=== PATIENT | male | born 1950 | race Caucasian/White ===

== ENCOUNTER 2020-01-23 22:18 | Inpatient (IN) | payer MEDICARE, MEDICAID ==
[~2020-01-23] VITALS: Ht 172.7 cm; Wt 59.0 kg
[~2020-01-23 22:18] MED LIST: DEXILANT30 MG PO; ELAVIL10 MG PO
[2020-01-23 22:39] VITALS: BP 125/50
[2020-01-23 22:51] LABS: BASO # 0.2 10*3/uL (0.0-0.1); BASO % 1.3 % (0.0-1.0); EOS # 0.1 10*3/uL (0.0-0.4); HEMATOCRIT 33.9 % (42.0-52.0); LYMPH # 2.7 10*3/uL (1.3-4.4); LYMPH % 23.2 % (27.0-41.0); MEAN CELL VOLUME 92.6 fl (80.0-94.0); MEAN CORPUSCULAR HGB 30.6 pg (27.0-31.0); MEAN PLATELET VOLUME 8.2 fl (9.6-12.3); MONO # 1.1 10*3/uL (0.1-1.0); MONO % 9.6 % (3.0-9.0); NEUT # 7.4 10*3/uL (2.3-7.9); PLATELET COUNT AUTOMATED 274 10*3/uL (130-400); RED BLOOD COUNT 3.66 10*6/uL (4.50-5.90); RED CELL DISTRI WIDTH 13.6 % (0-14.5); WHITE BLOOD COUNT 11.5 10*3/uL (4.8-10.8)
[2020-01-23 23:06] LABS: ALBUMIN 2.8 gm/dl (3.1-4.5); ALKALINE PHOSPHATASE 111 U/L (45-117); BUN 7 mg/dl (7-24); CHLORIDE 91 mmol/L (98-107); CREATININE 0.88 mg/dL (0.70-1.30); POTASSIUM 3.5 mmol/L (3.5-5.1); SGOT/AST 14 IU/L (3-35); SGPT/ALT 10 U/L (12-78); SODIUM 123 mmol/L (136-145); TOTAL PROTEIN 6.7 gm/dL (6.4-8.2)
[2020-01-23 23:07] LABS: ACT PARTIAL THROMBO TIME 25.6 SECONDS (20.0-32.1); INTERNATIONAL NORM RATIO 1.1 (2.0-3.5)
[2020-01-23 23:33] VITALS: BP 115/70
[2020-01-24] VITALS (22 sets, daily range): BP systolic 82–122; BP diastolic 36–61
--- NOTE | 2020-01-24 00:30 | NUR ---
PT ASKING IF HE CAN STEP OUTSIDE TO SMOKE . IT WAS EXPLAINED TO THE PATIENT HE CANNOT. INDU YO RN.
--- NOTE | 2020-01-24 00:40 | NUR ---
PT STATES HE DOES NOT A CATH. PROVIDER MADE AWARE. INDU YO RN.
--- NOTE | 2020-01-24 00:41 | NUR ---
SPOKE WITH THE PATIENTS ANS SHE IS AWARE THE PATIENT IS BEING ADMITTED, WILL CALL IN AM. INDU YO RN.
--- NOTE | 2020-01-24 00:45 | NUR ---
Time: 44 A 69 year old MALE admitted to 5E under services of ELIZABETH LIPSCOMB DO. Pt. arrived via bed from ER. Chief complaint: FALL AT HOME, PAIN IN LEFT HIP. DELMY GARCIA
--- NOTE | 2020-01-24 00:45 | NUR ---
A 69, admitted to 5E, under the services of ELIZABETH Lipscomb DO with a diagnosis of LEFT HIP FRACTURE. Chief complaint is LEFT HIP PAIN. Patient arrived via stretcher from ER. Monitor applied. Initial assessment completed. Vital signs taken and recorded. ELIZABETH LIPSCOBM DO notified of admission to the unit. Orders received. See assessment for past medical history, medications and allergies. Patient and/or family oriented to [facility]. visitation policy reviewed. Clothing/patienT valuable form completed. NED GOVEA RN
--- NOTE | 2020-01-24 00:45 | NUR ---
PER ER REPORT FROM INDU RN, DR. BAPTISTE WAS NOTIFIED BY DOCTOR IN ER.
--- NOTE | 2020-01-24 00:52 | NUR ---
PATIENT AT THIS TIME REFUSED PLACEMENT OF RANDOLPH CATHETER
--- NOTE | 2020-01-24 00:58 | NUR ---
NOTIFIED DR. PATTON OF PATIENT REFUSING RANDOLPH UP HERE ON THE FLOOR, NOTIFIED HIM IT WAS ORDERED IN ER AND THEY STATED THEY WOULD PLACE IT BEFORE THE PATIENT WAS BROUGHT UP TO THE FLOOR. BUT PATIENT IS REFUSING UP HERE. ALSO NOTIFIED HIM THAT PATIENT SMOKES 1PPD OF CIGARETTES. HE STATED IT WAS OK TO PUT IN A NICOTINE PATCH
--- NOTE | 2020-01-24 02:08 | NUR ---
PRN NORCO GIVEN PO AT THIS TIME WITH A SIP OF WATER FOR 10/10 PAIN IN PATIENT LEFT HIP DUE TO FRACTURE. A&O X3, CALL LIGHT WITHIN REACH, WILL CONTINUE TO MONITOR.
--- NOTE | 2020-01-24 02:08 | NUR ---
NICODERM PATCH PLACE ON PATIENT LEFT SCAPULA AT THIS TIME.
--- NOTE | 2020-01-24 03:00 | NUR ---
PATIENT STATED THAT PAIN WAS STILL AN 8/10 AFTER PRN PO NORCO WAS GIVEN. A&O X3, CALL LIGHT WITHIN REACH, WILL CONTINUE TO MONITOR.
[2020-01-24 03:41] LABS: BILIRUBIN NEGATIVE; BLOOD NEGATIVE (NEGATIVE); CLARITY CLEAR (CLEAR); COLOR YELLOW (YELLOW); GLUCOSE NEGATIVE; KETONE NEGATIVE; NITRITE NEGATIVE (NEGATIVE); PH 6.5 (4.5-8.0); SPECIFIC GRAVITY 1.005 (1.001-1.030); UROBILINOGEN 0.2 E.U./dl (0.0-1.0)
[2020-01-24 03:43] LABS: LEUKO ESTERASE NEGATIVE (NEGATIVE)
[2020-01-24 03:49] LABS: RBC 0-2 rbc/hpf (0-2); WBC 0-2 wbc/hpf (0-5)
[2020-01-24 03:50] LABS: URINE AMPHETAMINES < 1000 (1000ng/ml); URINE BARBITURATES < 200 (200ng/ml); URINE BENZODIAZEPINES < 200 (200ng/ml); URINE CANNABINOIDS (THC) > 50 (50ng/ml); URINE COCAINE < 300 (300ng/ml); URINE METHADONE < 300 (300ng/ml); URINE OPIATES > 300 (300ng/ml)
[2020-01-24 03:51] LABS: URINE PHENCYCLIDINE < 25 (25ng/ml)
--- NOTE | 2020-01-24 04:16 | NUR ---
PRN IV DILAUDID GIVEN AT THIS TIME FOR 10/10 PAIN IN PATIENT LEFT HIP DUE TO FRACTURE. A&O X3, CALL LIGHT WITHIN REACH, WILL CONTINUE TO MONITOR.
--- NOTE | 2020-01-24 05:10 | NUR ---
PER PATIENT PRN IV DILAUDID "DIDN'T WORK MAN, I NEED SOMETHING ELSE" ADVISED PATIENT THAT THIS RN WOULD CALL THE PHYSICIAN AND ASK IF THEY WOULD ORDER SOMETHING ELSE. DR. SERRANO NOTIFIED, NO NEW ORDERS GIVEN.
[2020-01-24 06:25] LABS: BUN 7 mg/dl (7-24); CHLORIDE 96 mmol/L (98-107); POTASSIUM 3.7 mmol/L (3.5-5.1); SODIUM 128 mmol/L (136-145)
[2020-01-24 06:30] LABS: CHOLESTEROL 131 mg/dL (<200); HDL CHOLESTEROL 61 mg/dl (40-60); LDL CHOLESTEROL 53 mg/dL (9-159); TRIGLYCERIDES 84 mg/dl (<150); VLDL CHOLESTEROL 17 mg/dL (6-40)
[2020-01-24 06:40] LABS: BASO # 0.1 10*3/uL (0.0-0.1); BASO % 0.7 % (0.0-1.0); EOS # 0.1 10*3/uL (0.0-0.4); EOS % 0.4 % (1.0-4.0); HEMATOCRIT 30.4 % (42.0-52.0); LYMPH # 2.3 10*3/uL (1.3-4.4); LYMPH % 16.4 % (27.0-41.0); MEAN CELL VOLUME 94.1 fl (80.0-94.0); MEAN CORPUSCULAR HGB 31.6 pg (27.0-31.0); MEAN CORPUSCULAR HGB CONC 33.6 g/dl (33.0-37.0); MEAN PLATELET VOLUME 8.4 fl (9.6-12.3); MONO # 1.1 10*3/uL (0.1-1.0); MONO % 7.7 % (3.0-9.0); NEUT # 10.3 10*3/uL (2.3-7.9); NEUT % 74.1 % (47.0-73.0); PLATELET COUNT AUTOMATED 287 10*3/uL (130-400); RED BLOOD COUNT 3.23 10*6/uL (4.50-5.90); RED CELL DISTRI WIDTH 13.7 % (0-14.5); WHITE BLOOD COUNT 13.9 10*3/uL (4.8-10.8)
[2020-01-24 08:05] LABS: VITAMIN D, 25-HYDROXY 15.6 ng/mL (30-100)
--- NOTE | 2020-01-24 08:12 | NUR ---
Occupational therapy order and nursing screen received. Will follow up with patient for completion of an OT evaluation. Thank you. Mahnaz Durant, OTR/L
--- NOTE | 2020-01-24 08:14 | NUR ---
NOTIFIED OF BP 88/54 AND REQUEST FOR PAIN MEDS. SAID OK TO GIVE DILAUDID AND WILL ORDER NS @60CC/HR.
--- NOTE | 2020-01-24 08:16 | NUR ---
PT REQUESTING SOMETHING FOR 9/10 L HIP PAIN. PRN DILUADID GIVEN PER ORDER, SEE EMAR.
--- NOTE | 2020-01-24 08:38 | NUR ---
DR. BAPTISTE IN TO SEE PT AT THIS TIME.
--- NOTE | 2020-01-24 08:38 | NUR ---
PHYSICAL THERAPY Screen and PT orders received from Hospitalist. Upon chart review pt admitted w LLE hip fx, to follow up with Ortho this AM for possible surgery. Will continue to follow post consultation from Ortho. Thank you. Pedro Pablo Brewer SPT Usha Deras PT
--- NOTE | 2020-01-24 09:00 | NUR ---
Sliding Joint Maker in to talk to patient. Patient states lives at home with girlfriend. There are 10 steps in the home. Physician: jamey dent Pharmacy: [facility] health services: none Patient's level of ADLs: INDEPENDENT Patient has working utilities: all working DME: none Follow-up physician's appointment after d/c: will be made by hospitalist nurse director upon discharge Does patient want to access PORTAL?: no Discharge plan discussed with patient, he states he lives at home with his girlfriend and her family, he states he was independent in adls and ambulation, until he fell, discussed with him a short term mcc with 5 days of rehab and 24 hour care., he was agreeable to this, given choice of faxilities he chose [facility], he has medicare insurance and will require a 3 night hospital stay to qualify for SNF, social insurance adviser will make referral to [facility] for when he is discharged. case management will follow. KAYDEN OQUENDO
--- NOTE | 2020-01-24 09:16 | NUR ---
REPORTS DILUADID SOMEWHAT EFFECTIVE, 7/10 PAIN REPORTED TO L HIP.
--- NOTE | 2020-01-24 09:57 | NUR ---
PT REMOVED NICOTINE PATCH, DOES NOT WANT A REPLACEMENT AT THIS TIME.
--- NOTE | 2020-01-24 10:19 | NUR ---
IV TORADOL GIVEN ONE TIME PER ORDER FOR PAIN.
--- NOTE | 2020-01-24 10:25 | NUR ---
Hep Lock discontinued. Site asymptomatic. Pressure applied. Sterile dressing applied. MARIA DE JESUS MANN
--- NOTE | 2020-01-24 11:12 | NUR ---
PT. IS UNAVAILALE AT THIS TIME. I/S AT BEDSIDE.
--- NOTE | 2020-01-24 11:19 | NUR ---
PT STATES TORADOL WAS INEFFECITVE.
--- NOTE | 2020-01-24 11:35 | NUR ---
PT TAKEN OFF THE FLOOR FOR SURGERY, VS STABLE. IVF INFUSING PER ORDER.
--- NOTE | 2020-01-24 11:48 | NUR ---
PT. WENT TO SURGERY AND THEN WILL GO TO CCU POST OP. NOT ABLE TO INSTRUCT I/S.
--- NOTE | 2020-01-24 12:45 | NUR ---
ASKED DR BAPTISTE ABOUT SCD'S AND IF HE WANTED SOHAN ROSARIO ON UNDER IT. HE ADVISED HE WOULD NOT BE IN SURGERY LONG ENOUGH TO NEED THEM AND HE DID NOT WANT THEM ON THE PATIENT.
--- NOTE | 2020-01-24 12:59 | NUR ---
REPORT CALLED IN TO KUNAL IN THE ICU.
--- NOTE | 2020-01-24 14:30 | NUR ---
OT NOTE Occupational therapy order received when patient was admitted to the fifth floor. Patient to have surgery this PM due to a L intertrochanteric hip fx. Per chart review, patient will be admitted to the ICCU following surgery. Will need new order OT orders due to being admitted to the ICCU. Thank you. Mahnaz Durant, OTR/L
[2020-01-24 15:56] LABS: BASO # 0.1 10*3/uL (0.0-0.1); BASO % 0.6 % (0.0-1.0); EOS % 0.1 % (1.0-4.0); HEMATOCRIT 25.8 % (42.0-52.0); LYMPH # 0.6 10*3/uL (1.3-4.4); LYMPH % 5.6 % (27.0-41.0); MEAN CELL VOLUME 94.5 fl (80.0-94.0); MEAN CORPUSCULAR HGB 30.8 pg (27.0-31.0); MEAN CORPUSCULAR HGB CONC 32.6 g/dl (33.0-37.0); MEAN PLATELET VOLUME 8.3 fl (9.6-12.3); MONO # 0.6 10*3/uL (0.1-1.0); MONO % 5.9 % (3.0-9.0); NEUT # 9.3 10*3/uL (2.3-7.9); NEUT % 87.2 % (47.0-73.0); PLATELET COUNT AUTOMATED 222 10*3/uL (130-400); RED BLOOD COUNT 2.73 10*6/uL (4.50-5.90); RED CELL DISTRI WIDTH 13.9 % (0-14.5); WHITE BLOOD COUNT 10.7 10*3/uL (4.8-10.8)
[2020-01-24 16:06] LABS: ALBUMIN 2.9 gm/dl (3.1-4.5); ALKALINE PHOSPHATASE 88 U/L (45-117); BUN 7 mg/dl (7-24); CHLORIDE 102 mmol/L (98-107); CREATININE 0.78 mg/dL (0.70-1.30); POTASSIUM 3.8 mmol/L (3.5-5.1); SGOT/AST 15 IU/L (3-35); SGPT/ALT 11 U/L (12-78); SODIUM 131 mmol/L (136-145)
--- NOTE | 2020-01-24 16:47 | NUR ---
PT. IN RECOVERY, NOT ABLE TO INSTRUCT I/S.
--- NOTE | 2020-01-24 19:09 | NUR ---
1705 Recieved from OR, sedate, snorous, VSS. 1830 Awake and moving about in bed. O2 removed as SAT 98% RA. attempted to void , stated he is unable. Bladder scan revealed 596 . pt. attempted to use urinal was unsuccessful . Lee cath #16 was inserted.
--- NOTE | 2020-01-24 19:27 | NUR ---
1924 PT IS CONFUSED. TRYING TO GET OOB. BED ALARM INTACT. STATES " I NEED MY SHOES. I HAVE TO PISS." INFORMED THAT HE HAS A RANDOLPH CATHETER. PATENT AND DRAINING CLEAR YELLOW URINE. MOVES ABOUT IN THE BED PER SELF. DRSG D/I LEFT HIP. NO DRNG NOTED. OVERBED TRAPEZE INTACT TO BED. PULSE OX 93% ON RA. IV FLUIDS CONT. SCD'S INTACT BILATERAL LOWER EXTREMITIES. WILL CONT TO MONITOR.
--- NOTE | 2020-01-24 19:57 | NUR ---
Abimael7 KEEPS INSISTING THAT HE HAS TO HAVE HIS SLIPPERS AND HIS ROBE TO STEP OUTSIDE AND HAVE A CIGARETTE. AGITATED AND CURSING. DISORIENTED TO PLACE AND TIME. THOUGHT HE HAD HIS SURGERY YESTERDAY. RE-ORIENTATION ATTEMPTED. MEDICATED WITH NORCO 1 PO AND FENTANYL 50MCG FOR C/O'S POST-OP PAIN LEFT HIP. DOES NOT RATE. DRINKING GINGERALE WITHOUT DIFFICULTY. NICODERM PATCH APPLIED. WILL MONITOR.
--- NOTE | 2020-01-24 20:32 | NUR ---
BED ALARM GOING OFF. PT COMBATIVE. TRYING TO GET OOB. TRANSFERRED TO ICCU #10 VIA BED WITH BELONGINGS.
--- NOTE | 2020-01-24 20:57 | NUR ---
2056 EARLIER PAIN MEDS INEFFETIVE. 2199 CONT TO TRY TO GET OOB. STATES " I NEED TO SMOKE". BED ALARM REMAINS INTACT IN CONSTANT VIEW OF ICCU STAFF
--- NOTE | 2020-01-24 23:58 | NUR ---
NORCO FOR C/O'S PAIN AND RESTORIL FOR SLEEP. 1063 FENTANYL 5MCG IV FOR C/O'S POST - OP PAIN LEFT HIP. DOES NOT RATE. WILL MONITOR. CONT TO TRY TO GET OOB INTERMITTENTLY TO "GO SMOKE".
[2020-01-25] VITALS (7 sets, daily range): BP systolic 96–131; BP diastolic 56–80
--- NOTE | 2020-01-25 00:31 | NUR ---
ABOVE NOTE SHOULD READ 50MCG OF FENTANYL GIVEN
--- NOTE | 2020-01-25 00:32 | NUR ---
QUIETER AT PRESENT. RESTING IN BED IN SUPINE POSITION WITH EYES CLOSED.
--- NOTE | 2020-01-25 00:58 | NUR ---
EARLIER MEDS EFFECTIVE. RESTING IN BED WITH EYES CLOSED. APPEARS TO BE SLEEPING.
--- NOTE | 2020-01-25 04:06 | NUR ---
REMAINS SLEEPING WIHTOUT DISTRESS.
--- NOTE | 2020-01-25 04:47 | NUR ---
0447 FENTANYL 50MCG IV FOR C/O'S POST-OP PAIN LEFT HIP. WILL MONITOR.
--- NOTE | 2020-01-25 05:47 | NUR ---
EARLIER FENTANYL EFFECTIVE.
--- NOTE | 2020-01-25 06:09 | NUR ---
RESTING IN BED WITH EYES CLOSED. APPEARS TO BE SLEEPING. IV FLUIDS CONT. RANDOLPH PATENT. CONDITION GUARDED.
[2020-01-25 06:24] LABS: ALBUMIN 2.8 gm/dl (3.1-4.5); BUN 4 mg/dl (7-24); CHLORIDE 104 mmol/L (98-107); POTASSIUM 4.2 mmol/L (3.5-5.1); SODIUM 135 mmol/L (136-145)
[2020-01-25 06:27] LABS: ALKALINE PHOSPHATASE 89 U/L (45-117); CREATININE 0.55 mg/dL (0.70-1.30); SGOT/AST 20 IU/L (3-35); SGPT/ALT 13 U/L (12-78)
[2020-01-25 06:29] LABS: BASO % 0.1 % (0.0-1.0); HEMATOCRIT 26.5 % (42.0-52.0); LYMPH # 0.8 10*3/uL (1.3-4.4); LYMPH % 6.7 % (27.0-41.0); MEAN CORPUSCULAR HGB 31.2 pg (27.0-31.0); MEAN CORPUSCULAR HGB CONC 32.8 g/dl (33.0-37.0); MEAN PLATELET VOLUME 8.8 fl (9.6-12.3); MONO # 0.9 10*3/uL (0.1-1.0); MONO % 7.7 % (3.0-9.0); NEUT # 9.7 10*3/uL (2.3-7.9); NEUT % 85.1 % (47.0-73.0); PLATELET COUNT AUTOMATED 235 10*3/uL (130-400); RED BLOOD COUNT 2.79 10*6/uL (4.50-5.90); RED CELL DISTRI WIDTH 14.1 % (0-14.5); WHITE BLOOD COUNT 11.4 10*3/uL (4.8-10.8)
--- NOTE | 2020-01-25 07:27 | NUR ---
Shift chart check completed.
--- NOTE | 2020-01-25 08:00 | NUR ---
PO TYLENOL GIVEN FOR C/O LT HIP PAIN BUT CALMS DOWN QUICKLY..
--- NOTE | 2020-01-25 08:23 | NUR ---
PODIATRY HAS BEEN IN AND CLIPPED NAILS.. ORTHO SURGEON IN AND EXAMINED PATIENT. PATIENT SITTING UP IN BED EATING.. DR MOON (RESIDENT) HERE AND SPOKE WITH THE PATIENT
--- NOTE | 2020-01-25 08:59 | NUR ---
MEDICATED WITH NORCO FOR CONTINUED C/O PAIN IN LEFT HIP AND RESTLESSNESS..PER PT "IT HURTS BAD" IS DONE WITH NURSE 5 TIMES PULLING 1500
--- NOTE | 2020-01-25 09:10 | NUR ---
PHYSICAL THERAPY Physical Therapy evaluation completed on ICCU with full evaluation to follow. Moderate complexity skilled PT evaluation per chart review and evaluation, [address]. Recommend physical therapy per plan of care and SNF upon discharge. Thank you for this referral. Melyssa Rodriguez,PT,DPT
--- NOTE | 2020-01-25 09:10 | NUR ---
Occupational Therapy evaluation completed on ICCU with full evaluation to follow. Recommend occupational therapy per plan of care and SNF upon discharge. Thank you for this referral. Mahnaz Durant OTR/L
--- NOTE | 2020-01-25 09:27 | NUR ---
UP IN CHAIR WITH PHYSICAL THERAPY..
--- NOTE | 2020-01-25 09:51 | NUR ---
RANDOLPH CATHETER REMOVED AFTER PATIENT CONTINUES TO FUSS & STAND ON HIS OWN DESPITE MULTIPLE TIMES OF BEING TOLD THAT HE IS AT RISK FOR A FALL AND REMINDED THAT HE JUST HAD SURGERY..PER THE PATIENT HE KNOWS HE DID AND HE CAN STAND BY HIMSELF AND DOESN'T NEED ME TELLING HIM OVER AND OVER..PERSONAL ITEMS WITHIN REACH..ATTEMPTED TO USE THE URINAL BUT NOTHING CAME OUT..IVF RESTARTED..
--- NOTE | 2020-01-25 10:03 | NUR ---
CALMER SINCE MEDICATED WITH NORCO ABOUT LEG PAIN.. STARTING TO BE LESS AGGITATED SINCE RANDOLPH CATHETER IS OUT.. SITTING IN RECLINER WATCHING TV
--- NOTE | 2020-01-25 11:00 | NUR ---
PHYSICAL THERAPY Patient seen this am 1;1 for therapy visit and was sitting up in bedside chair upon therapist arrival. Patient identified by name / and reports increased L hip soreness / pain, but unable to rate on 0-10 pain scale. OT operations and intelligence assistant was also present for observation only this session as patient transfers sit to stand with MIN A, demonstrating very slow rise from low chair surface. x several trials, tolerating approx 1 minute static stand each attempt. Patient ambulated 18'x 1, use of wh walker standing support, CGA during straight line gait and MIN A with all 90/180 turns. Patient demonstrated very slow, antalgic, "step to" gait pattern, requiring v/c to avoid bouts of increased gait velocity. Patient can also be impulsive at times, however able to improve focus on task following additional v/c's. Patient averaged 108-122 range recording HR and remained in bedside chair following all therapy under ICCU Nursing Supervision. Will continue per POC as tolerated, total treatment time 14 minutes. Tyler Robin, BUILDING GUARD DEPUTY SHERIFF
--- NOTE | 2020-01-25 11:07 | NUR ---
GRADER MARKER FAXED UPDATES TO [facility]. PATIENT WILL REQUIRE 3 NIGHT STAY AND COMPLETION OF [place] [facility].
--- NOTE | 2020-01-25 11:20 | NUR ---
OT NOTE Pt was seen this A.M. 1:1 for 25 minute OT session with [facility] nurse approval for treatment. Upon arrival pt was sitting upright in the recliner. Pt identified by name and and had complaints of L hip pain which he was unable to rate on 0-10 pain scale. While seated requested for pt to doff and harpreet B socks, pt was able to doff and harpreet R sock with SBA however L required modA due to pain. Sit to stand completed from chair level with Tiesha, challenged pt's static standing tolerance needed for increased I in self care tasks and functional transfers, pt was able to tolerate aprox 2 minutes at a time before sitting due to fatigue. Also challenged pt's dynamic standing balance while weight shifting and reaching over all planes, pt was able to maintain F/F+ standing balance throughout. Sit to stand completed from chair level with Tiesha and use of w/w for UE support followed by Functional mobility completed around the room with CGA and use of w/w. After a seated rest break pt completed BUE towel exercises with mod resistance over all planes for 1 X 10 to increase and restore maximum functional use. Throughout session pt's heart rate maintained between 109 at rest and 122 with activity. Pt was left sitting upright in the recliner with call light in hand, tray table in place, and body alarm activated for safety. Continue with POC as able. DEVON Chong
--- NOTE | 2020-01-25 12:00 | NUR ---
PT ASSESSED FOR PROPER INCENTIVE SPIROMETRY TECHNIQUE. PT ABLE TO DEMONSTRATE PROPER TECHNIQUE AND ACHIEVE 2.0 L. PT INSTRUCTED TO USE Q 1-2 HR W/A.
--- NOTE | 2020-01-25 12:50 | NUR ---
SITTING QUIETLY WITHOUT COMPLAINTS IN RECLINER.. LUNCH ORDERED. PAIN MED EFFECTIVE
--- NOTE | 2020-01-25 13:47 | NUR ---
ASSISTED BACK TO BED WITH 2 MIN ASSIST & WALKER.. PT DID WELL. DRESSING TO LEFT LEG REDRESSED AFTER PATIENT KEPT MESSING WITH IT UNTIL IT WAS EXPOSING THE BRIGIDO ON THE UPPER INCISION. NO REDNESS OR DRAINAGE NOTED. LOWER SITES QUICKLY CHECKED AND BRIGIDO INTACT.. NURSE MENTIONED TAKING PICTURE BUT PATIENT REFUSED TO ALLOW NURSE TO TAKE A PICTURE SAYING "NO ONE WANTS TO SEE MY BUTT".. 2 NURSES TRIED TO EXPLAIN IT WASN'T HIS BUTT JUST THE HIP AND WE WOULD MAKE SURE HIS BUTTOCK WAS COVERED. PATIENT STILL REFUSED..
--- NOTE | 2020-01-25 14:13 | NUR ---
MEDICATED WITH MORPHINE FOR CONTINUED C/O & MOANING WITH PAIN AFTER BACK TO BED..PT ENCOURAGED TO LAY ON HIS SIDE & NOT TO TOUCH DRESSING...PT ALSO INSTRUCTED ON WHERE CALL KIM WAS & HAND PLACED ON IT.. VISION OF PATIENT IS EXTREMELY POOR - ASKED IF LEGALLY BLIND AND HE SAID NO BUT SHOWS SIGNS OF IT
--- NOTE | 2020-01-25 14:19 | NUR ---
PHYSICAL THERAPY CO-SIGN I approve of the Physical Therapy notes written above. YENNIFER CARDOZO PT, DPT
--- NOTE | 2020-01-25 14:49 | NUR ---
PHYSICAL THERAPY Nursing screen received. PT evaluation complete and patient currently on PT caseload. Will continue to follow. Thank you Melyssa Rodriguez,PT,DPT
--- NOTE | 2020-01-25 14:49 | NUR ---
OT NOTE Nursing screen received. Patient is currenty on OT caseload. Will continue with POC as able. Thank you. Mahnaz Durant, OTR/L
--- NOTE | 2020-01-25 14:52 | NUR ---
PATIENT RESTING QUIETLY IN BED AFTER MORPHINE.. LESS RESTLESSNESS & TALKING AOUT TV SHOW
--- NOTE | 2020-01-25 15:19 | NUR ---
LESS COUGHING THIS AFTERNOON... PER PT THE MORPHINE HAS HELPED
--- NOTE | 2020-01-25 16:46 | NUR ---
UP IN CHAIR WITH 2 MIN ASSIST..VOIDED STRAW URINE
--- NOTE | 2020-01-25 17:41 | NUR ---
NORCO GIVEN FOR LT LEG PAIN AFTER TRYING TO CROSS HIS LEGS..PT SITTING UP IN CHAIR AT THIS TIME
--- NOTE | 2020-01-25 19:09 | NUR ---
SCHEDULED PO ATIVAN GIVEN AT THIS TIME DUE TO INCREASED ANXIETY AND AGITATION AT THIS TIME. DR. BRADEN AT BEDSIDE AND AWARE. NEW ORDERS RECEIVED SEE EMAR.
--- NOTE | 2020-01-25 21:04 | NUR ---
PRN NORCO GIVEN AT THIS TIME FOR 8 PAIN IN PATIENT LEFT HIP FOR POST SURGICAL PAIN. PRN RESTORIL GIVEN AT PATIENT REQUEST FOR SLEEP. PRN TYLENOL GIVEN AT THIS TIME FOR PATIENT COMPLAINT OF HEADACHE 10/06. A&O X3, CALL LIGHT WITHIN REACH. WILL CONTINUE TO MONITOR.
--- NOTE | 2020-01-25 21:50 | NUR ---
PATIENT RESTING IN BED IN A POSITION OF COMFORT AT THIS TIME WITH EYES CLOSED. RESPIRATIONS EASY AND NON-LABORED AT THIS TIME. NO SIGNS OR SYMPTOMS OF PAIN OR DISTRESS NOTED AT THIS TIME. WILL CONTINUE TO MONITOR.
[2020-01-26] VITALS: BP 98/57
--- NOTE | 2020-01-26 00:12 | NUR ---
THIS RN HEARD PATIENT CALL OUT FROM DOORWAY TO HIS HOSPITAL ROOM AND UPON ENTERING ROOM PATIENT WAS FOUND TO BE AMBULATING WITH WHEELED WALKER BY THE BATHROOM DOOR. WHEN ASKED WHERE PATIENT WAS GOING HE STATED "FOR A WALK OUT THERE SOMEWHERE" PATIENT EDUCATED THAT HE CANNOT AMBULATE ON HIS OWN DUE TO RECENT HIP FRACTURE REPAIR AND NOT BEING CLEARED BY PT AT THIS TIME. PATIENT ASSISTED BACK TO BED, BED ALARM REACTIVATED AT THIS TIME AND PATIENT ADVISED NOT TO DEACTIVATE ALARMS THAT THEY ARE ON FOR HIS SAFETY. MULTIMEDIA DESIGNER FOUND LYING ON BEDSIDE STAND AND PATIENT IS REFUSING TO HAVE IT PLACED BACK ON, DR. BRADEN AWARE.
--- NOTE | 2020-01-26 05:43 | NUR ---
PRN NORCO GIVEN AT THIS TIME FOR 7/10 PAIN IN PATIENT LEFT HIP POST SURGICAL INTERVENTION. A&O X3, CALL LIGHT WITHIN REACH, WILL CONTINUE TO MONITOR
[2020-01-26 05:57] LABS: BUN 6 mg/dl (7-24); CHLORIDE 104 mmol/L (98-107); CREATININE 0.66 mg/dL (0.70-1.30); POTASSIUM 3.5 mmol/L (3.5-5.1); SODIUM 135 mmol/L (136-145)
--- NOTE | 2020-01-26 06:07 | NUR ---
24 HOUR CHART CHECK COMPLETE
[2020-01-26 06:21] LABS: BASO # 0.1 10*3/uL (0.0-0.1); BASO % 0.5 % (0.0-1.0); EOS % 0.3 % (1.0-4.0); HEMATOCRIT 23.8 % (42.0-52.0); LYMPH # 2.1 10*3/uL (1.3-4.4); LYMPH % 21.9 % (27.0-41.0); MEAN CELL VOLUME 95.6 fl (80.0-94.0); MEAN CORPUSCULAR HGB 30.9 pg (27.0-31.0); MEAN CORPUSCULAR HGB CONC 32.4 g/dl (33.0-37.0); MONO % 10.6 % (3.0-9.0); NEUT # 6.3 10*3/uL (2.3-7.9); NEUT % 66.2 % (47.0-73.0); PLATELET COUNT AUTOMATED 229 10*3/uL (130-400); RED BLOOD COUNT 2.49 10*6/uL (4.50-5.90); RED CELL DISTRI WIDTH 14.5 % (0-14.5); WHITE BLOOD COUNT 9.5 10*3/uL (4.8-10.8)
[2020-01-26 08:00] VITALS: BP 105/52
--- NOTE | 2020-01-26 08:03 | NUR ---
DR HERNANDEZ ROUNDED AND SEEN PT.
--- NOTE | 2020-01-26 09:30 | NUR ---
PT ATTEMPTED TO GET OUT OF CHAIR AND SET CHAIR ALARM OFF. AT THIS TIME HE BECAME AGITATED AND PULLED IV OUT. NOTIFIED DR HERNANDEZ. PT REFUSING IV AT THIS TIME.
--- NOTE | 2020-01-26 10:09 | NUR ---
NORCO 5/325 MG FOR C/O PAIN TO LEFT HIP.01/06.PT UP IN CHAIR AT BEDSIDE. STOOD PT TO VOID IN URINAL. PT VOIDED 200 CC CLEAR YELLOW URINE. PT AGITATED AND CONFUSION NOTED. PT STATED "GET MY WALKING STICK FROM IN THE KITCHEN".DR HERNANDEZ AWARE.
--- NOTE | 2020-01-26 10:20 | NUR ---
PHYSICAL THERAPY Patient seen this am 1:1 FOR therapy visit and was sitting up in bedside chair upon therapist arrival. Patient identified by name / and reports 6/10 L hip pain at rest. Per discussion with Nurse, patient has been very anxious this morning with repeated attempts to get up, however not sure where he wants to go due to increased confusion. Patient needed repeated v/c's to focus on task thoughout entire therapy session and transfers sit to stand, MIN A from low chair surface. Patient ambulates with use of wh walker, 30'x 2, CGA, demonstrating slow, "step to" adeel and antalgic gait pattern secondary to c/o of increased L hip pain 7/10 during gait ex. Patient needed several standing rest breaks due to increased fatigue and was instructed on standing therex. Patient able to perform stand L LE therex, including SLR x 3, HS curl and heel raise x 10 reps each to increase strength. Patient demonstrated limited AROM in all planes due to increased weakness / pain complaint. Patient returned to bedside chair and remained with call light, tray table, telepohone, body alarm for safety. Will continue per POC as tolerated, total treatemnt time 24 minutes. Tyler Robin, LINOLEUM FLOOR LAYER
[2020-01-26 12:00] VITALS: BP 100/57
--- NOTE | 2020-01-26 12:00 | NUR ---
DR BAPTISTE ROUNDED AND SEEN PT.DRESSINGS REMOVED AND TO BE LEFT HIGHWAY PAINTER HELPER PER DR BAPTISTE.
[2020-01-26 12:55] LABS: IRON 14 ug/dL (65-175); TOTAL IRON BINDING CAPACITY 183 ug/dl (250-450)
--- NOTE | 2020-01-26 14:30 | NUR ---
PT REFUSING FEASOL AT THIS TIME. PT ATTEMPTING TO WALK . MYSELF AND TWO OTHERS WERE ABLE TO ASSIST PT TO BED. PT MAX ASSIST TO BED FROM CHAIR. DIDNT TOLERATE WELL. PT DISGRUNTLED BUT COOPERATIVE. RESP EASY ON RA. BED ALARM INTACT. CALL LIGHT IN REACH.
--- NOTE | 2020-01-26 15:00 | NUR ---
REGULATORY ASSISTANT NOTIFIED ME PT IV INFILTRATED FOLLOWING OMNIPAQUE ADMINISTRATION. CT UNABLE TO COMPLETE SCAN WITH CONTRAST.DR HERNANDEZ NOTIFIED PT UNABLE TO HAVE SCAN FOR AT LEAST [address] WILCOX NOTIFIED OF POLICY REGARDING DAILY DOSES OF OMNIPAQUE ADMINISTRATION.
--- NOTE | 2020-01-26 15:12 | NUR ---
PT RETURNED TO FLOOR.D/C HEPLOCK TO RAN. COMPRESSES APPLIED. PT DENIES PAIN AT THIS TIME. SLIGHTLY SWOLLEN BUT OTHERWISE NO CHANGES IN SKIN COLOR. WILL CONTINUE TO MONITOR.CALL LIGHT IN REACH.
--- NOTE | 2020-01-26 15:30 | NUR ---
BED ALARM WENT OFF AND I ANSWERED TO FIND PT ATTEMPTING TO EXIT BED. MYSELF AND 1 OTHER ASSISTED PT TO STAND AT BEDSIDE TO ALLOW HIM TO URINATE. PT VOIDED 225 YELLOW URINE.PT STOOD AND TOLERATED WELL. ASSISTED BACK TO BED,REPOSITIONED FOR CPOMFORT. RESPS EASY ON RA. VOICES NO OTHER C/O AT THIS TIME.BED ALARM INTACT. CALL LIGHT IN REACH.
--- NOTE | 2020-01-26 16:25 | NUR ---
ENTERED PT ROOM TO FIND PT LEANING OVER IN BED AND CALLED A RAPID RESPONSE ONLY TO BE UNABLE TO FIND PULSE AND CALLED CODE BLUE. COMPRESSIONS BEGAN WHILE CODE TEAM ARRIVED.
--- NOTE | 2020-01-26 16:47 | NUR ---
CODE ENDED. PT . PT FAMILY HERE WITH LABOR RELATIONS DIRECTOR WILFRED DAMON IN ROOM 512.FAMILY IN TO SEE PT AT BESIDE. EMOTIONAL SUPPORT PROVIDED.
--- NOTE | 2020-01-26 17:14 | NUR ---
DR BAPTISTE NOTIFIED OF PT DEMISE.
--- NOTE | 2020-01-26 17:30 | NUR ---
ONE CALL NOTIFIED AND REFERENCE NUMBER RECIEVED. REF # [id number]. LIPSTICK MOLDER WILFRED DAMON NOTIFIED OF NUMBER.
--- NOTE | 2020-01-26 18:30 | NUR ---
SON ESCORTED TO FLOOR TO SEE FATHER AT BEDSIDE. EMOTIONAL SUPPORT PROVIDED. SON STATES AT THIS TIME HE WAS OK WITH [facility] CHOSEN BY FATHERS GIRLFRIEND.SON APPEARS TO BE SLIGHTLY INTOXICATED. ASKED GUARD TO STAY WITH PT TO SUPERVISE IN EVENT OF FALLS. SON ASKED IF HE HAD ANY QUESTIONS. HE STATED NO AT THIS TIME AND ASKED BRANCH CREDIT COUNSELOR TO TAKE HIM BACK TO HIS FAMILY.
--- NOTE | 2020-01-26 19:00 | NUR ---
PT TRANSPORTED TO [facility] VIA CART BY SECURITY.
--- NOTE | 2020-01-26 19:30 | NUR ---
[facility] ARRIVED TO TRANSPORT TO HOME.MORTUARY FORM COMPLETED.
--- NOTE | 2020-01-28 07:18 | NUR ---
LINUX PROGRAMMER TO NOTIFY [facility]IN-ANUP OF PATIENT EXPIRING.
== END 2020-01-26 19:30 | disposition expired | DRG 480 ==
LOC: ED 22:18 → 5E 23:36 → ICCU 23:36 → EDHOLD 23:36 → 5E 23:57 → ICCU 01-24 12:58 → 5E 01-25 19:10
PROVIDERS: Hospitalist; Internal Medicine; Physician Assistant; Student in an Organized Health Care Education/Training Program; ADMIT Internal Medicine; ATTEND Internal Medicine
PROC: 0QH706Z Insertion of Intramedullary Internal Fixation Device into Left Upper Femur, Open Approach (ICD-10-PCS; principal; 2020-01-24)
PROC: 0HBRXZZ Excision of Toe Nail, External Approach (ICD-10-PCS; 2020-01-25)
DX: S72.142A Displaced intertrochanteric fracture of left femur, initial encounter for closed fracture (principal); E43 Unspecified severe protein-calorie malnutrition; Z68.1 Body mass index [BMI] 19.9 or less, adult; D72.829 Elevated white blood cell count, unspecified; F12.10 Cannabis abuse, uncomplicated; R73.9 Hyperglycemia, unspecified; D72.810 Lymphocytopenia; J44.9 Chronic obstructive pulmonary disease, unspecified; D64.9 Anemia, unspecified; F17.210 Nicotine dependence, cigarettes, uncomplicated; J45.20 Mild intermittent asthma, uncomplicated; E55.9 Vitamin D deficiency, unspecified; E88.09 Other disorders of plasma-protein metabolism, not elsewhere classified; Z88.6 Allergy status to analgesic agent; Z82.5 Family history of asthma and other chronic lower respiratory diseases; Z84.89 Family history of other specified conditions; W18.39XA Other fall on same level, initial encounter; Y93.89 Activity, other specified; Y92.89 Other specified places as the place of occurrence of the external cause; Y99.8 Other external cause status